=== PATIENT | female | born 1970 | race American Indian/Alaskan Native ===

== ENCOUNTER 2018-01-23 21:08 | Emergency (ER) | payer BC, OTHER ==
[2018-01-23 21:21] VITALS: BP 147/93
[2018-01-23] MEDS ORDERED: MOTRIN ONE (23:26)
[2018-01-23] MEDS ORDERED: MOTRIN PO ONE (23:29)
[2018-01-24] MEDS ORDERED: FLEXERIL PO ONE (00:52)
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
== END 2018-01-24 01:15 | disposition home or self-care (01) ==
LOC: ED 21:08
DX: S29.012A Strain of muscle and tendon of back wall of thorax, initial encounter (principal); M54.2 Cervicalgia; I10 Essential (primary) hypertension; G43.909 Migraine, unspecified, not intractable, without status migrainosus; F17.200 Nicotine dependence, unspecified, uncomplicated; Z79.82 Long term (current) use of aspirin; Z88.8 Allergy status to other drugs, medicaments and biological substances; Z88.6 Allergy status to analgesic agent; Z91.040 Latex allergy status; V43.62XA Car passenger injured in collision with other type car in traffic accident, initial encounter; Y93.89 Activity, other specified; Y92.89 Other specified places as the place of occurrence of the external cause; Y99.8 Other external cause status
CPT/HCPCS: 99283

== ENCOUNTER 2020-09-20 16:06 | Emergency (ER) | payer SELFPAY ==
[2020-09-20] MEDS ORDERED: HYDROcodone/ACETAMINOPHEN 5-325 MG TAB PO ONE (16:59)
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
[2020-09-20 19:34] VITALS: BP 184/108
== END 2020-09-20 19:35 | disposition home or self-care (01) ==
LOC: ED 16:06
DX: S43.102A Unspecified dislocation of left acromioclavicular joint, initial encounter (principal); S09.90XA Unspecified injury of head, initial encounter; M54.5 Low back pain; M54.2 Cervicalgia; R03.0 Elevated blood-pressure reading, without diagnosis of hypertension; I10 Essential (primary) hypertension; G43.909 Migraine, unspecified, not intractable, without status migrainosus; Z79.899 Other long term (current) drug therapy; Z88.8 Allergy status to other drugs, medicaments and biological substances; Z91.040 Latex allergy status; Z90.710 Acquired absence of both cervix and uterus; Z98.51 Tubal ligation status; Y04.8XXA Assault by other bodily force, initial encounter; Y93.89 Activity, other specified; Y92.89 Other specified places as the place of occurrence of the external cause; Y99.8 Other external cause status
CPT/HCPCS: 70450; 72125; 72131